=== PATIENT | female | born 1980 | race Caucasian/White ===

== ENCOUNTER 2017-03-24 12:32 | Emergency (ER) | payer BC ==
[2017-03-24 13:58] VITALS: BP 112/89
--- NOTE | 2017-03-24 14:18 | UC ---
Respiratory Complaint HPI - HPI Summary HPI Summary: cough x 8 days + chest congest, nasal congestion , fever, chills , body aches cough is productive, yellow sputum has been dizzy and lightheaded - History of Current Complaint Chief Complaint: UCRespiratory Stated Complaint: FEVER, COUGH, VOMITING Time Seen by Provider: 03/24/17 14:02 Hx Obtained From: Patient Hx Last Menstrual Period: 02/24/17 Onset/Duration: Gradual Onset, Lasting Days - 8, Still Present Severity Initially: Moderate Severity Currently: Moderate Pain Intensity: 0 Character: Cough: Productive Aggravating Factors: Exertion, Deep Breaths Associated Signs And Symptoms: Positive: Fever, Chills, URI, Nasal Congestion. 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 tubes in ears. BILATERAL FALLOPIAN TUBES REMOVED - Family History Known Family History: Negative: Diabetes - Social History Alcohol Use: None Substance Use Type: None Smoking Status (MU): Never Smoked Tobacco Review of Systems Constitutional: Fever, Chills, Fatigue Skin: Negative Eyes: Negative ENT: Nasal Discharge Respiratory: Cough Cardiovascular: Negative Gastrointestinal: Negative Is Patient Immunocompromised?: No All Other Systems Reviewed And Are Negative: Yes Physical Exam Triage Information Reviewed: Yes Appearance: Well-Nourished, Pain Distress Vital Signs: Initial Vital Signs Temp 98.4 F 03/24/17 13:46 Pulse 116 03/24/17 13:46 Resp 24 03/24/17 13:46 BP 112/89 03/24/17 13:46 Pulse Ox 97 03/24/17 13:46 Vital Signs Reviewed: Yes Eyes: Positive: Conjunctiva Clear ENT: Positive: Normal ENT inspection, Hearing grossly normal, Pharynx normal, Nasal drainage Neck: Positive: Supple, Nontender, No Lymphadenopathy Respiratory: Positive: Chest non-tender, Decreased breath sounds, Crackles - diffuse bilateral crackles Cardiovascular: Positive: Tachycardia Skin Exam: Normal UC Diagnostic Evaluation - Laboratory O2 Sat by Pulse Oximetry: 97 Respiratory Course/Dx - Differential Dx/Diagnosis Provider Diagnoses: bronchitis Discharge - Discharge Plan Referrals: Bryan Bach MD [Primary Care Provider] -
--- NOTE | 2017-03-24 14:53 | RAD ---
HISTORY: Cough COMPARISONS: None VIEWS: 4: Frontal dual-energy and lateral views of the chest. FINDINGS: CARDIOMEDIASTINAL SILHOUETTE: The cardiomediastinal silhouette is normal. MIKEL: The mikel are normal. PLEURA: The costophrenic angles are sharp. No pleural abnormalities are noted. LUNG PARENCHYMA: There is patchy alveolar opacification of the lingula. ABDOMEN: The upper abdomen is clear. There is no subphrenic gas. BONES AND SOFT TISSUES: No bone or soft tissue abnormalities are noted. OTHER: None. IMPRESSION: PATCHY LINGULAR CONSOLIDATION. RECOMMEND FOLLOW-UP UNTIL RESOLUTION TO EXCLUDE UNDERLYING PULMONARY PARENCHYMAL PATHOLOGY.
== END 2017-03-24 14:51 | disposition home or self-care (01) ==
LOC: UCCORT 12:32
DX: J40 Bronchitis, not specified as acute or chronic (principal)
CPT/HCPCS: 71046; 99212; G0463

== ENCOUNTER 2018-05-08 12:10 | Emergency (ER) | payer BC, OTHER ==
[2018-05-08 13:25] VITALS: BP 107/74
--- NOTE | 2018-05-08 13:30 | UC ---
Minor Trauma HPI - HPI Summary HPI Summary: 37 year old female with h/o R ankle fx in high school presents after fall at work today, when her roller cart tipped, taking patient down with her, hitting her right lower extremity with increased pain at knee and ankle. + ambulatory with mild pain at b/l ankles, R knee. + bruising at right and left shins. ? hit head, however no LOC, no BYRD, no pain, no neck pain. small abrasion R knee , cleaned by nurse. - History of Current Complaint Chief Complaint: UCLowerExtremity Stated Complaint: WC-SP FALL,RT LEG, ARM INJURY Time Seen by Provider: 05/08/18 13:19 Hx Obtained From: Patient Hx Last Menstrual Period: 04/09/18 ?: No Onset/Duration: Sudden Onset, Lasting Minutes Onset Of Pain: Immediate Severity Initially: Moderate Severity Currently: Moderate Pain Intensity: 7 Pain Scale Used: 0-10 Numeric Mechanism Of Injury: Fall From Height Of: - standing Aggravating Factor(s): Ambulation Alleviating Factor(s): Rest Associated Signs And Symptoms: Negative: Loss Of Consciousness - Allergies/Home Medications Allergies/Adverse Reactions: Allergies Allergy/AdvReac Type Severity Reaction Status Date / Time No Known Allergies Allergy Verified 05/08/18 13:12 Home Medications: Home Medications Cholecalciferol TAB* [Vitamin D TAB*] 1,000 unit PO DAILY 05/08/18 [History Confirmed 05/08/18] Levonorgestrel (Iud) [Liletta IUD] 18.6 mcg IU 05/08/18 [History] PMH/Surg Hx/FS Hx/Imm Hx Previously Healthy: Yes - Surgical History Surgical History: Yes Surgery Procedure, Year, and Place: cyst removals. tubes in ears. BILATERAL FALLOPIAN TUBES REMOVED. D&C- TO REMOVE UTERINE POLPS - Family History Known Family History: Negative: Diabetes - Social History Alcohol Use: Rare Substance Use Type: None Smoking Status (MU): Never Smoked Tobacco Review of Systems All Other Systems Reviewed And Are Negative: Yes Constitutional: Positive: Negative Neurovascular: Negative: Decreased Sensation, Decreased Pulses Musculoskeletal: Positive: Arthralgia, Decreased ROM, Edema, Myalgia Neurological: Negative: Headache Psychological: Positive: Negative Is Patient Immunocompromised?: No Physical Exam - Summary Physical Exam Summary: TTP over distal patella with mild pre-patellar swelling noted. Triage Information Reviewed: Yes Appearance: Well-Appearing, No Pain Distress, Well-Nourished Vital Signs: Initial Vital Signs Temp 98.3 F 05/08/18 13:15 Pulse 84 05/08/18 13:15 Resp 17 05/08/18 13:15 BP 107/74 05/08/18 13:15 Pulse Ox 99 05/08/18 13:15 Vital Signs Reviewed: Yes Eyes: Positive: Conjunctiva Clear Musculoskeletal: Positive: Strength Intact, ROM Intact, Edema @ - mild b/l lower tib b/l. Neurological: Positive: Muscle Tone Normal, Other: - bl knees- neg mcmurrays, no instability, neg acl/ pcl. + TTP over MCL, LCL R knee, none L knee. mild prepatellar swelling R knee. neg homans b/l, achilles intact b/l, small bruising noted b/l lower tibia with TTP over bruising, no deformity noted. TTP over R anterior ankle, however with distaction no tenderness appreciated. no TTP over b/lmed/ lat mal. no ankle swelling, bruising b/l. full ROM both AROM/ PROM with full strength b/l ankles. PT, DP 2+ b/l, SITLT> Psychological Exam: Normal Skin: Positive: Other - small superficial abrasion Right knee, cleaned without difficulty, no bleeding, bruising. Minor Trauma Course/Dx - Course Course Of Treatment: radiograph R knee- negative fro fx. Follow up with orthopedics if no improvement within 2-3 days - bone contusion - Differential Dx/Diagnosis Differential Diagnosis/HQI/PQRI: Contusion(s), Fracture Provider Diagnosis: Contusion of both tibias, Prepatellar bursitis Discharge - Sign-Out/Discharge Documenting (check all that apply): Patient Departure All imaging exams completed and their final reports reviewed: Yes - Discharge Plan Condition: Good Disposition: HOME Patient Education Materials: Contusion in Adults (ED), R.I.C.E. Treatment (ED) , Knee Bursitis (ED) Forms: *Work Release Referrals: Bryan Bach MD [Primary Care Provider] - Josh Hurt MD [Medical Doctor] - (follow up in 3-5 days if no improvement ) Additional Instructions: - Elevate, rest, ice bilateral escobedo contusions/ bruising - Motrin/ Tylenol as needed for pain. - Work note for tomorrow if needed - Follow up with orthopedics if no improvement - Billing Disposition and Condition Condition: GOOD Disposition: Home
== END 2018-05-08 14:40 | disposition home or self-care (01) ==
LOC: UCCORT 12:10
DX: S80.12XA Contusion of left lower leg, initial encounter (principal); S80.11XA Contusion of right lower leg, initial encounter; S80.211A Abrasion, right knee, initial encounter; M70.42 Prepatellar bursitis, left knee; M70.41 Prepatellar bursitis, right knee; Z87.828 Personal history of other (healed) physical injury and trauma; W17.89XA Other fall from one level to another, initial encounter; Y92.9 Unspecified place or not applicable
CPT/HCPCS: 99212; G0463

== ENCOUNTER 2018-07-30 13:00 | Emergency (ER) | payer BC, OTHER ==
[2018-07-30] MEDS ORDERED: Ondansetron ODT TAB* 4 MG PO ONE (13:58)
--- NOTE | 2018-07-30 13:58 | UC ---
UC General HPI - HPI Summary HPI Summary: pt awoke around 4:40 this am feeling ill and weak. she then developed some nausea, vomiting and diarrhea about every 1-2 hours since then. at times she feels light headed like she wants to pass out. she is afraid to drink because she will throw up. she went to work and they were giving her a hard time about going home due to this illness. she denies any abdominal pain, travel hx, fever and IBD. - History of Current Complaint Chief Complaint: UCGI Stated Complaint: VOMITING,DIARRHEA,FATIGUE Time Seen by Provider: 07/30/18 13:50 Hx Obtained From: Patient Hx Last Menstrual Period: Liletta IUD Pain Intensity: 6 - Allergy/Home Medications Allergies/Adverse Reactions: Allergies Allergy/AdvReac Type Severity Reaction Status Date / Time No Known Allergies Allergy Verified 07/30/18 13:17 PMH/Surg Hx/FS Hx/Imm Hx - Additional Past Medical History Additional PMH: hyperinsomnia, myotonic muscular dystrophy, gastroparesis - Surgical History Surgical History: Yes Surgery Procedure, Year, and Place: cyst removals. tubes in ears. BILATERAL FALLOPIAN TUBES REMOVED. D&C- TO REMOVE UTERINE POLPS - Family History Known Family History: Negative: Diabetes - Social History Occupation: Employed Full-time Alcohol Use: None Substance Use Type: None Smoking Status (MU): Never Smoked Tobacco - Immunization History Most Recent Tetanus Shot: WITHIN 5 YEARS Review of Systems All Other Systems Reviewed And Are Negative: Yes Constitutional: Positive: Fatigue Gastrointestinal: Positive: Vomiting, Diarrhea, Nausea. Negative: Abdominal Pain Motor: Positive: Weakness Neurological: Positive: Headache Physical Exam Triage Information Reviewed: Yes Appearance: Well-Appearing Vital Signs: Initial Vital Signs Temp 98.3 F 07/30/18 13:13 Pulse 100 07/30/18 13:13 Resp 16 07/30/18 13:13 BP 99/63 07/30/18 13:13 Pulse Ox 96 07/30/18 13:13 Vital Signs Reviewed: Yes Eyes: Positive: Conjunctiva Clear ENT: Positive: Pharynx normal, TMs normal, Other - Lips and teeth are dry. Negative: Nasal congestion, Nasal drainage Neck: Positive: Supple, Nontender, No Lymphadenopathy Respiratory: Positive: Lungs clear, Normal breath sounds, No respiratory distress Cardiovascular: Positive: RRR, No Murmur Abdomen Description: Positive: Nontender, No Organomegaly, Soft. Negative: Distended, Guarding Bowel Sounds: Positive: Present Musculoskeletal: Positive: ROM Intact Neurological: Positive: Alert Psychological: Positive: Age Appropriate Behavior Skin Exam: Normal Skin: Negative: Rashes Diagnostics - Laboratory Lab Results: BS=93. Positive orthostatic changes. Re-Evaluation - Re-Evaluation First Eval Re-Evaluation Time: 15:21 Change: Improved - NAUSEA HAS RESOLVED. DRANK SOME GINGERALE WITHOUT N/V. PT ABLE TO BE UPRIGHT WITHOUT FEELING WEAK OR DIZZY. SHE FEELS WELL ENOUGH TO GO HOME. Course/Dx - Differential Dx - Multi-Symptom Differential Diagnoses: Other - NON TOXIC. NO ACUTE ABDOMEN. S/S'S RESOLVED WITH FLUIDS AND ZOFRAN. - Diagnoses Provider Diagnosis: Vomiting, Diarrhea, Dehydration Discharge - Sign-Out/Discharge Documenting (check all that apply): Patient Departure All imaging exams completed and their final reports reviewed: No Studies - Discharge Plan Condition: Stable Disposition: HOME Patient Education Materials: Dehydration (ED), Acute Nausea and Vomiting (ED), Acute Diarrhea (ED) Forms: *Work Release Referrals: Bryan Bach MD [Primary Care Provider] - 3 Days - Billing Disposition and Condition Condition: STABLE Disposition: Home - Attestation Statements Provider Attestation: Per institutional requirements, I have reviewed the chart, however, I was not consulted specifically or made aware of this patient by the midlevel provider. I did not personally evaluate, interact with , or disposition this patient. Please note my shift ended at 14:30
[2018-07-30] MEDS ORDERED: NS 0.9% 1000 ML** 1,000 ML IV ONE (13:59)
[2018-07-30 15:40] VITALS: BP 102/61
== END 2018-07-30 15:40 | disposition home or self-care (01) ==
LOC: UCCORT 13:00
DX: R11.10 Vomiting, unspecified (principal); R19.7 Diarrhea, unspecified; E86.0 Dehydration
CPT/HCPCS: 96360; 99212; A9270-GY; G0463

== ENCOUNTER 2018-10-10 12:01 | Emergency (ER) | payer BC ==
[2018-10-10 12:51] VITALS: BP 114/78
--- NOTE | 2018-10-10 13:09 | UC ---
Throat Pain/Nasal Reinaldo HPI - HPI Summary HPI Summary: sinus pain and pressure x 10 days nasal congestion , pnd, sore throat productive cough , yellow sputum no fever, + chills, body aches not better with otc meds - History of Current Complaint Chief Complaint: UCRespiratory Stated Complaint: SINUS Time Seen by Provider: 10/10/18 13:02 Hx Obtained From: Patient Hx Last Menstrual Period: unknown ?: No Onset/Duration: Gradual Onset, Lasting Days - 10, Still Present Severity: Moderate Pain Intensity: 7 Cough: Productive Associated Signs & Symptoms: Positive: Sinus Discomfort, Nasal Discharge. Negative: Dysphagia, Hoarseness, Fever, Vomiting, Rash - Allergies/Home Medications Allergies/Adverse Reactions: Allergies Allergy/AdvReac Type Severity Reaction Status Date / Time No Known Allergies Allergy Verified 10/10/18 12:46 PMH/Surg Hx/FS Hx/Imm Hx - Additional Past Medical History Additional PMH: Fatty Liver, Hypersomnia, IBS, Myotonic Muscular Dystrophy, Sleep Apnea - Surgical History Surgical History: Yes Surgery Procedure, Year, and Place: cyst removals. tubes in ears. BILATERAL FALLOPIAN TUBES REMOVED. D&C- TO REMOVE UTERINE POLPS - Family History Known Family History: Negative: Diabetes - Social History Alcohol Use: None Substance Use Type: None Smoking Status (MU): Never Smoked Tobacco - Immunization History Most Recent Tetanus Shot: WITHIN 5 YEARS Review of Systems All Other Systems Reviewed And Are Negative: Yes Constitutional: Positive: Negative Skin: Positive: Negative Eyes: Positive: Negative ENT: Positive: Nasal Discharge, Sinus Congestion, Sinus Pain/Tenderness Respiratory: Positive: Cough Cardiovascular: Positive: Negative Is Patient Immunocompromised?: No Physical Exam Triage Information Reviewed: Yes Appearance: Well-Appearing, No Pain Distress, Well-Nourished Vital Signs: Initial Vital Signs Temp 97.6 F 10/10/18 12:47 Pulse 77 10/10/18 12:47 Resp 18 10/10/18 12:47 BP 114/78 10/10/18 12:47 Pulse Ox 100 10/10/18 12:47 Eye Exam: Normal Eyes: Positive: Conjunctiva Clear ENT: Positive: Normal ENT inspection, Pharynx normal, Nasal congestion, Nasal drainage, TMs normal, Sinus tenderness. Negative: Pharyngeal erythema, TM bulging, TM dull, TM red Neck: Positive: Supple, Nontender, No Lymphadenopathy Respiratory: Positive: Chest non-tender, Lungs clear, Normal breath sounds Cardiovascular: Positive: RRR, No Murmur, Pulses Normal Throat Pain/Nasal Course/Dx - Differential Dx/Diagnosis Provider Diagnosis: Sinusitis Discharge ED - Sign-Out/Discharge Documenting (check all that apply): Patient Departure All imaging exams completed and their final reports reviewed: No Studies - Discharge Plan Condition: Stable Disposition: HOME Prescriptions: Amoxicillin/Clavulanate TAB* [Augmentin TAB 875*] 875 mg PO BID #20 tab Fluticasone NASAL SPRAY 50MCG* [Flonase NASAL SPRAY 50MCG*] 2 spray BOTH NARES DAILY #1 btl Patient Education Materials: Sinusitis (ED) Referrals: Bryan Bach MD [Primary Care Provider] - If Needed - Billing Disposition and Condition Condition: STABLE Disposition: Home
== END 2018-10-10 13:11 | disposition home or self-care (01) ==
LOC: UCCORT 12:01
DX: J32.9 Chronic sinusitis, unspecified (principal); G71.11 Myotonic muscular dystrophy
CPT/HCPCS: 99212; G0463